=== PATIENT | female | born 1950 | race Caucasian/White ===

== ENCOUNTER 2016-08-28 18:47 | Emergency (ER) | payer OTHER ==
[2016-08-28 20:02] VITALS: BP 153/80
[2016-08-28] MEDS ORDERED: Fluconazole 100 MG TAB* TAB PO ONE (20:51)
[2016-08-28] MEDS ORDERED: Cyclobenzaprine TAB* 10 MG PO ONE (20:52)
[2016-08-28] MEDS ORDERED: traMADol TAB* 50 MG PO ONE (20:53)
--- NOTE | 2016-08-28 21:03 | UC ---
UC General HPI - HPI Summary HPI Summary: 3 problems: low back pain for a week, no injury. She is 4'11" and 225 lb, has frequent episodes of pain. OTC meds not helping. Hard to get comfortable. Also complains of vaginal itching and foul odor when she urinates. Thinks she may have a UTI. Also complains of pain around index fingernail on left side, redness. No drainage. No known injury. - History of Current Complaint Chief Complaint: UCGU Stated Complaint: POSSIBLE UTI, LEFT FINGER SWELLING Time Seen by Provider: 08/28/16 20:42 Hx Obtained From: Patient Onset/Duration: Gradual Onset, Lasting Weeks - 1 Timing: Constant Onset Severity: Mild Current Severity: Mild - Allergy/Home Medications Allergies/Adverse Reactions: Allergies Allergy/AdvReac Type Severity Reaction Status Date / Time Penicillins Allergy Intermediate Hives Verified 08/28/16 20:02 Home Medications: Home Medications Clopidogrel TAB* [Plavix TAB*] 75 mg PO DAILY 08/28/16 [History Confirmed ] PMH/Surg Hx/FS Hx/Imm Hx Endocrine History Of: Reports: Diabetes Cardiovascular History Of: Reports: Hypertension Denies: Cardiac Disorders Respiratory History Of: Reports: Asthma Psychological History Of: Reports: Anxiety, Depression - Surgical History Surgical History: Yes Surgery Procedure, Year, and Place: 1998 APPEDIX AND RT OVARY REMOVED AT [facility] - Family History Known Family History: Positive: Hypertension, Respiratory Disease - Social History Occupation: Retired Lives: With Family Alcohol Use: None Substance Use Type: None Smoking Status (MU): Never Smoked Tobacco Household Exposure Type: Cigarettes - Immunization History Most Recent Influenza Vaccination: "April 2012" Most Recent Tetanus Shot: "up to date" Review of Systems Constitutional: Fatigue Skin: Negative Eyes: Negative ENT: Negative Respiratory: Negative Cardiovascular: Negative Gastrointestinal: Negative Genitourinary: Other - foul odor when urinating. Vaginal itching and "fishy" smell. Motor: Negative Neurovascular: Negative Musculoskeletal: Decreased ROM, Myalgia - lumbar, bilat Neurological: Negative Psychological: Negative All Other Systems Reviewed And Are Negative: Yes Physical Exam Triage Information Reviewed: Yes Appearance: Well-Appearing, No Pain Distress, Well-Nourished, Obese Vital Signs: Initial Vital Signs Temp 97.2 F 08/28/16 19:59 Pulse 105 08/28/16 19:59 Resp 16 02/15/17 19:59 BP 153/80 08/28/16 19:59 Pulse Ox 99 08/28/16 19:59 Vital Signs Reviewed: Yes Eye Exam: Normal Neck exam: Normal Respiratory Exam: Normal Cardiovascular Exam: Normal Musculoskeletal Exam: Other - mild tenderness to palpation over lumbar musculature. Slow to rise up out of chair. Normal gait, but is extremely obese and walking appears to be painful due to excessive weight Neurological Exam: Normal Psychological Exam: Normal Skin Exam: Other - left index finger with redness, tenderness, mild swelling lateral to nail. No pus collection. Good ROM of finger Course/Dx - Differential Dx - Multi-Symptom Provider Diagnoses: 1. lumbar strain 2. vaginitis 3. mild paronychia Discharge - Discharge Plan Condition: Stable Disposition: HOME Prescriptions: Cyclobenzaprine TAB* [Flexeril TAB*] 10 mg PO TID PRN #20 tab PRN Reason: back pain Sulfamethox/Trimethoprim DS* [Bactrim DS 800/160 TAB*] 1 tab PO BID #20 tab Tramadol HCl [Ultram] 1 - 2 mg PO TID PRN #30 tab MDD 6 tab PRN Reason: back pain Patient Education Materials: Cellulitis (ED), Low Back Strain (ED), Vaginitis ( ED) Referrals: Frances Butts MD [Primary Care Provider] -
== END 2016-08-28 21:18 | disposition home or self-care (01) ==
LOC: UCCORT 18:47
DX: S39.012A Strain of muscle, fascia and tendon of lower back, initial encounter (principal); X58.XXXA Exposure to other specified factors, initial encounter; Y93.9 Activity, unspecified; Y92.9 Unspecified place or not applicable; N76.0 Acute vaginitis; L03.012 Cellulitis of left finger; Z88.0 Allergy status to penicillin; Z77.22 Contact with and (suspected) exposure to environmental tobacco smoke (acute) (chronic)
CPT/HCPCS: 87077; 87086; 87186; 99213; A9270-GY; G0463

== ENCOUNTER 2019-07-19 18:41 | Emergency (ER) | payer MEDICARE, OTHER ==
[2019-07-19 19:13] VITALS: BP 97/51
--- NOTE | 2019-07-19 19:40 | UC ---
Skin Complaint HPI - HPI Summary HPI Summary: 68-year-old female presents with a concern for infection or abscess on her vulva /labia for approximately 1 month. Patient states she had similar episode about 3 months ago and went to emergency room and was placed on antibiotics Bactrim and the symptoms resolved. About one month ago the area became more sensitive and over the past week has been most sensitive. There was some drainage a couple days ago which trained. Her last shot was about 2 days ago and noticed some discomfort in the area. She denies any fevers or chills. In the emergency room the area was not lancets at the time according to the patient he says the daughter mentioned that they were concerned about potential infection. Palpating the area worsened symptoms. The antibiotics improved the symptoms previously. - History of Current Complaint Chief Complaint: UCSkin Time Seen by Provider: 07/19/19 19:37 Stated Complaint: SKIN COMPLAINT Hx Obtained From: Patient Hx Last Menstrual Period: N/A Onset/Duration: Gradual Onset Pain Intensity: 8 Aggravating Factor(s): Touch Alleviating Factor(s): Nothing - Allergy/Home Medications Allergies/Adverse Reactions: Allergies Allergy/AdvReac Type Severity Reaction Status Date / Time Penicillins Allergy Intermediate Hives Verified 07/19/19 19:13 Home Medications: Home Medications Apixaban* [Eliquis*] 2.5 mg PO BID 07/19/19 [History Confirmed 07/19/19] Glimepiride 2 mg PO DAILY 07/19/19 [History Confirmed 07/19/19] Pantoprazole TAB * [Protonix TAB*] 40 mg PO DAILY 07/19/19 [History Confirmed ] PMH/Surg Hx/FS Hx/Imm Hx Previously Healthy: Yes Endocrine History: Diabetes, Dyslipidemia Cardiovascular History: Cardiac Disease, Hypertension, Atrial Fibrillation GI/ History: Gastroesophageal Reflux Psychological History: Depression - Surgical History Surgical History: Yes Surgery Procedure, Year, and Place: 1998 APPEDIX AND RT OVARY REMOVED AT [facility]. right ankle fx 2018 - Family History Known Family History: Positive: Hypertension, Respiratory Disease - Social History Alcohol Use: Occasionally Substance Use Type: None Smoking Status (MU): Never Smoked Tobacco Household Exposure Type: Cigarettes - Immunization History Most Recent Influenza Vaccination: "April 2012" Most Recent Tetanus Shot: "up to date" Review of Systems All Other Systems Reviewed And Are Negative: Yes Skin: Positive: Other - Possible abscess and pain in the genital area Physical Exam Triage Information Reviewed: Yes Appearance: Well-Appearing, No Pain Distress, Well-Nourished Vital Signs: Initial Vital Signs Temp 97.7 F 07/19/19 19:08 Pulse 84 07/19/19 19:08 Resp 17 07/19/19 19:08 BP 97/51 07/19/19 19:08 Pulse Ox 98 07/19/19 19:08 Vital Signs Reviewed: Yes ENT Exam: Normal Dental Exam: Normal Neck: Positive: 1 Respiratory Exam: Normal Cardiovascular Exam: Normal Abdominal Exam: Normal Neurological Exam: Normal Psychological Exam: Normal Skin Exam: Normal Skin: Positive: Other - see photo Images Perineum Female: 1 - 2 x 2 cm area of redness, tenderness to palpation with dry discharge in the center with some induration Course/Dx - Course Course Of Treatment: Patient with abscess present at this time. There is some dried drainage in the center so potential that it has started to drain on its own already. We discussed incision and drainage but with the patient's risk factors of diabetes but more poorly being on a blood thinner if an incision was made and because of bleeding occurred we are not a good facility to handle such. Since previously D Bactrim caused the symptoms to resolve we will start with that at this time. Monitor blood sugars closely. If pain worsens go to emergency room for potential incision and drainage. Follow up with primary care doctor in 2-3 days. Patient is aware and agreeable to plan as well as to side effects of antibiotics. - Differential Diagnoses - Skin Complaint Differential Diagnoses: Abscess - Diagnoses Provider Diagnosis: Labial abscess Discharge ED - Sign-Out/Discharge Documenting (check all that apply): Patient Departure All imaging exams completed and their final reports reviewed: No Studies - Discharge Plan Condition: Good Disposition: HOME Prescriptions: Sulfamethox/Trimethoprim DS* [Bactrim DS 800/160 TAB*] 1 tab PO BID #20 tab Patient Education Materials: Abscess (ED) Referrals: No Primary Care Phys,NOPCP [Primary Care Provider] - 3 Days Additional Instructions: As we discussed you are placed on antibiotics and should perform warm soaks to the area in a bathtub once per day. If symptoms worsen or pain worsens please go to emergency room for further evaluation. - Billing Disposition and Condition Condition: GOOD Disposition: Home
[2019-07-19] MEDS ORDERED: traMADol TAB* 50 MG PO ONE (20:12)
== END 2019-07-19 19:54 | disposition home or self-care (01) ==
LOC: UCCORT 18:41
DX: N76.4 Abscess of vulva (principal); E11.9 Type 2 diabetes mellitus without complications; I10 Essential (primary) hypertension; I48.91 Unspecified atrial fibrillation; K21.9 Gastro-esophageal reflux disease without esophagitis; Z79.84 Long term (current) use of oral hypoglycemic drugs; Z79.899 Other long term (current) drug therapy; Z88.0 Allergy status to penicillin; Z79.01 Long term (current) use of anticoagulants
CPT/HCPCS: 99212; A9270-GY; G0463

== ENCOUNTER 2023-07-16 21:26 | Inpatient (IN) ==
[2023-07-16] MEDS ORDERED: Ondansetron 4 mg VIAL 2 MG/ML 2 ml VIAL IV ONE (21:50)
[2023-07-16 22:29] LABS: ABS Lymphocytes 1.6 10^3/uL (1.0-4.8); ABS Monocytes 0.8 10^3/uL (0.0-0.9); Eosinophil % 0.5 %; Hematocrit 35.6 % (35-45); Hemoglobin 11.6 g/dL (11.5-14.3); Mean Corpuscular Hemoglobin 31.1 pg (27-33); Mean Corpuscular Hgb Conc 32.6 g/dL (31-36); Mean Corpuscular Volume 95.2 fL (80-97); Mean Platelet Volume 9.3 fL (7.5-11.2); Platelet Count 215 10^3/uL (150-450); Red Blood Count 3.74 10^6/uL (3.63-4.92); Red Cell Distribution Width 18.3 % (12-17); White Blood Count 9.5 10^3/uL (3.8-11.8)
[2023-07-16 23:09] LABS: Albumin 3.6 g/dL (3.2-5.2); Albumin/Globulin Ratio 0.9 (1-3); C Reactive Protein 75.23 mg/L (<8.01); Creatinine, Serum 8.14 mg/dL (0.51-0.95); Globulin 3.8 g/dL (2-4); Magnesium 1.1 mg/dL (1.9-2.7); Potassium 6.3 mmol/L (3.5-5.0); Total Bilirubin 0.5 mg/dL (0.2-1.0); Total Protein 7.4 g/dL (6.4-8.9); eGFR CKD-EPI 4.9 (>60)
[2023-07-16] MEDS ORDERED: Furosemide 40 mg/4 ml IV VIAL IV ONE (23:54)
[2023-07-16] MEDS ORDERED: Magnesium Sulfate 2 gm BAG 2 GM/50 ML BAG IVPB ONE (23:54)
[2023-07-16] MEDS ORDERED: Albuterol 2.5mg/3 ml (0.083%) NEB.SOLN INH ONE (23:54)
[2023-07-16] MEDS ORDERED: Calcium Gluconate 2 GM in NS 0.9% 100 ml BAG 100 ML IVPB ONE (23:54)
[2023-07-16] MEDS ORDERED: Lactated Ringers 1000 ml BAG 1,000 ML IV ONE (23:54)
[2023-07-17] MEDS ORDERED: Sodium Polystyrene ORAL.SUSP 15 GM/60 ML BTL PO ONE ×2 (00:11→00:29)
[2023-07-17] MEDS ORDERED: NS 0.9% 1000 ml BAG 1,000 ML IV SCH (00:30)
[2023-07-17] MEDS ORDERED: Sodium Bicarbonate 8.4% SYR 50 ml SYRINGE IV ONE (00:35)
[2023-07-17] MEDS ORDERED: Magnesium Sulfate 2 gm BAG 2 GM/50 ML BAG IVPB ONE (00:35)
[2023-07-17] MEDS ORDERED: Sodium Bicarbonate 8.4% SYR 50 ml SYRINGE ONE (01:41)
[2023-07-17 05:04] LABS: Venous Bicarbonate HCO3 13.9 mmol/L (24-28)
[2023-07-17 05:41] LABS: Calcium 9.1 mg/dL (8.6-10.3); Creatinine, Serum 8.16 mg/dL (0.51-0.95); Potassium 5.4 mmol/L (3.5-5.0); eGFR CKD-EPI 4.9 (>60)
[2023-07-17] MEDS ORDERED: Sodium Bicarb 8.4% Vial 50 ML 150 MEQ in D5W 1000 ml BAG 850 ML IV SCH (09:30)
[2023-07-17 11:38] LABS: Urine Appearance Cloudy; Urine Bacteria 1+ (Absent); Urine Bilirubin Negative (Negative); Urine Blood 2+ (Negative); Urine Color Yellow; Urine Glucose Negative (Negative); Urine Ketones Negative (Negative); Urine Nitrite Negative (Negative); Urine Protein 1+(30 mg/dL) (Negative); Urine Red Blood Cell 3+(>10/hpf) (Absent); Urine Specific Gravity 1.009 (1.002-1.030); Urine Squamous Epithelial Cell Present (Absent); Urine Urobilinogen Negative (Negative); Urine White Blood Cell 3+(>20/hpf) (Absent)
[2023-07-17 11:41] LABS: Creatinine, Serum 7.99 mg/dL (0.51-0.95); Potassium 5.4 mmol/L (3.5-5.0)
[2023-07-17] MEDS: Sodium Bicarb 8.4% Vial 50 ML 150 MEQ in D5W 1000 ml BAG 850 ML IV SCH ×2 (14:30→22:21)
[2023-07-17 15:14] LABS: C Reactive Protein 70.33 mg/L (<8.01)
[2023-07-17 15:41] LABS: Rheumatoid Factor < 10 IU/mL (<15)
[2023-07-17 15:42] LABS: Anion Gap 28 mmol/L (2-16); Blood Urea Nitrogen 95 mg/dL (6-24); CO2 Carbon Dioxide 11 mmol/L (22-32); Chloride 100 mmol/L (101-111); Creatinine, Serum 8.06 mg/dL (0.51-0.95); Glucose 214 mg/dL (70-100); Potassium 5.1 mmol/L (3.5-5.0); Sodium 139 mmol/L (135-145); eGFR CKD-EPI 4.9 (>60)
[2023-07-17 15:58] LABS: Hepatitis B Surface Antigen Nonreactive (Nonreactive)
[2023-07-17 16:09] LABS: HIV 4th Generation Nonreactive (Nonreactive)
[2023-07-17 21:17] LABS: Calcium 8.4 mg/dL (8.6-10.3); Creatinine, Serum 7.85 mg/dL (0.51-0.95); Potassium 4.3 mmol/L (3.5-5.0); eGFR CKD-EPI 5.1 (>60)
[2023-07-18 01:28] LABS: Creatinine, Serum 7.49 mg/dL (0.51-0.95); Potassium 3.5 mmol/L (3.5-5.0); eGFR CKD-EPI 5.4 (>60)
[2023-07-18] MEDS ORDERED: Potassium EFFERVES 25 meq TAB PO ONE (01:47)
[2023-07-18 05:27] LABS: ABS Eosinophils 0.1 10^3/uL (0.0-0.5); ABS Lymphocytes 0.4 10^3/uL (1.0-4.8); ABS Monocytes 0.3 10^3/uL (0.0-0.9); ABS Neutrophils 5.9 10^3/uL (1.5-7.6); Eosinophil % 1.2 %; Hematocrit 29.3 % (35-45); Lymphocyte % 5.8 %; Mean Corpuscular Hgb Conc 34.1 g/dL (31-36); Mean Platelet Volume 8.7 fL (7.5-11.2); Platelet Count 177 10^3/uL (150-450); Red Blood Count 3.22 10^6/uL (3.63-4.92); Red Cell Distribution Width 17.8 % (12-17); White Blood Count 6.6 10^3/uL (3.8-11.8)
[2023-07-18 05:44] LABS: Calcium 8.3 mg/dL (8.6-10.3); Creatinine, Serum 7.47 mg/dL (0.51-0.95); Potassium 3.8 mmol/L (3.5-5.0); eGFR CKD-EPI 5.4 (>60)
[2023-07-18] MEDS: Cholecalciferol (VIT D3) 1,000 unit TAB PO SCH (07:51)
[2023-07-18 07:52] LABS: Phosphorus 4.2 mg/dL (2.5-5.0)
[2023-07-18] MEDS: Venlafaxine XR 75 mg PO SCH (07:52)
[2023-07-18] MEDS: NS 0.9% 1000 ml BAG 1,000 ML IV SCH ×2 (08:56→21:17)
[2023-07-18 10:16] LABS: Magnesium 1.5 mg/dL (1.9-2.7)
[2023-07-18] MEDS: Nystatin TOP POWDER 15 GM BTL TOPICAL SCH ×2 (12:23→21:19)
[2023-07-18 14:29] LABS: Kappa Free Light Chain 10.9 mg/dL; Lambda Free Light Chain, S 10.7 mg/dL
[2023-07-18 14:30] LABS: Calcium 7.7 mg/dL (8.6-10.3); Creatinine, Serum 7.08 mg/dL (0.51-0.95); Potassium 3.5 mmol/L (3.5-5.0); eGFR CKD-EPI 5.8 (>60)
[2023-07-18] MEDS ORDERED: NS 0.9% 500 ml BAG 500 ML IV ONE (14:50)
[2023-07-18] MEDS ORDERED: Magnesium Sulfate 2 gm BAG 2 GM/50 ML BAG IVPB ONE ×2 (14:54→15:54)
[2023-07-18 16:05] LABS: Complement C3 142 mg/dL (75 - 175)
[2023-07-18] MEDS ORDERED: Magnesium Sulfate IV 1GM/100ML 1 GM/100 ML BAG IV ONE (16:15)
[2023-07-18 16:59] LABS: Hepatitis B Surface Ab Not Immune (Immune)
[2023-07-18 17:00] LABS: Hepatitis C Antibody Negative (Negative)
[2023-07-18] MEDS: Sodium Bicarb 8.4% Vial 50 ML 150 MEQ in D5W 1000 ml BAG 850 ML IV SCH ×2 (21:48→21:49)
[2023-07-19 00:12] LABS: Albumin 2.7 g/dL (3.4-4.7); Flag, M-protein Isotype Negative (Negative); Total Protein 6.5 g/dL (6.3 - 7.9)
[2023-07-19] MEDS ORDERED: Calcium Carb (TUMS) 500 mg CHEW TAB PO ONE (00:48)
[2023-07-19 02:57] LABS: Calcium 7.6 mg/dL (8.6-10.3); Creatinine, Serum 6.3 mg/dL (0.51-0.95); Magnesium 2.2 mg/dL (1.9-2.7); Potassium 3.1 mmol/L (3.5-5.0); eGFR CKD-EPI 6.6 (>60)
[2023-07-19 05:30] LABS: ABS Eosinophils 0.1 10^3/uL (0.0-0.5); ABS Lymphocytes 0.7 10^3/uL (1.0-4.8); ABS Monocytes 0.5 10^3/uL (0.0-0.9); ABS Neutrophils 3.9 10^3/uL (1.5-7.6); Eosinophil % 2.6 %; Hemoglobin 8.8 g/dL (11.5-14.3); Lymphocyte % 13.6 %; Mean Corpuscular Hemoglobin 31.4 pg (27-33); Mean Corpuscular Volume 92.3 fL (80-97); Mean Platelet Volume 8.8 fL (7.5-11.2); Platelet Count 151 10^3/uL (150-450); Red Blood Count 2.81 10^6/uL (3.63-4.92); Red Cell Distribution Width 17.5 % (12-17); White Blood Count 5.3 10^3/uL (3.8-11.8)
[2023-07-19] MEDS ORDERED: Potassium EFFERVES 25 meq TAB PO ONE (05:54)
[2023-07-19] MEDS: NS 0.9% 1000 ml BAG 1,000 ML IV SCH ×2 (07:12→22:00)
[2023-07-19] MEDS: Venlafaxine XR 75 mg PO SCH (07:56)
[2023-07-19] MEDS: Nystatin TOP POWDER 15 GM BTL TOPICAL SCH ×3 (07:56→20:24)
[2023-07-19] MEDS: Cholecalciferol (VIT D3) 1,000 unit TAB PO SCH (07:56)
[2023-07-19] MEDS ORDERED: Potassium Chlor 20 meq TAB.ER PO ONE (08:11)
[2023-07-19 12:04] LABS: Calcium 7.9 mg/dL (8.6-10.3); Creatinine, Serum 6.19 mg/dL (0.51-0.95); Potassium 3.9 mmol/L (3.5-5.0); eGFR CKD-EPI 6.8 (>60)
[2023-07-19] MEDS ORDERED: Dextrose 50% Syringe 50 ml 25 GM/50 ML SYRINGE IV PUSH PRN (16:17)
[2023-07-20 04:13] LABS: ABS Eosinophils 0.2 10^3/uL (0.0-0.5); ABS Lymphocytes 0.9 10^3/uL (1.0-4.8); ABS Monocytes 0.5 10^3/uL (0.0-0.9); ABS Neutrophils 3.4 10^3/uL (1.5-7.6); Eosinophil % 3.3 %; Hematocrit 24.9 % (35-45); Hemoglobin 8.4 g/dL (11.5-14.3); Lymphocyte % 18.1 %; Mean Corpuscular Hemoglobin 31.7 pg (27-33); Mean Corpuscular Hgb Conc 33.9 g/dL (31-36); Mean Corpuscular Volume 93.7 fL (80-97); Mean Platelet Volume 8.7 fL (7.5-11.2); Platelet Count 157 10^3/uL (150-450); Red Blood Count 2.66 10^6/uL (3.63-4.92); Red Cell Distribution Width 17.8 % (12-17); White Blood Count 4.9 10^3/uL (3.8-11.8)
[2023-07-20 04:32] LABS: Creatinine, Serum 5.84 mg/dL (0.51-0.95); Potassium 3.4 mmol/L (3.5-5.0); eGFR CKD-EPI 7.2 (>60)
[2023-07-20] MEDS: NS 0.9% 1000 ml BAG 1,000 ML IV SCH ×2 (07:32→17:56)
[2023-07-20] MEDS: Venlafaxine XR 75 mg PO SCH (08:42)
[2023-07-20] MEDS: Cholecalciferol (VIT D3) 1,000 unit TAB PO SCH (08:43)
[2023-07-20] MEDS: Nystatin TOP POWDER 15 GM BTL TOPICAL SCH ×2 (10:28→14:15)
[2023-07-20] MEDS: Senna TAB 8.6 mg TAB PO PRN (20:29)
[2023-07-20] MEDS: Polyethylene Glycol 3350 17 GM PACKET PO PRN (20:30)
[2023-07-21] MEDS: Nystatin TOP POWDER 15 GM BTL TOPICAL SCH ×5 (01:07→20:06)
[2023-07-21] MEDS: NS 0.9% 1000 ml BAG 1,000 ML IV SCH (03:59)
[2023-07-21] MEDS: Cholecalciferol (VIT D3) 1,000 unit TAB PO SCH (07:52)
[2023-07-21] MEDS: Venlafaxine XR 75 mg PO SCH (07:53)
[2023-07-21 08:34] LABS: Hematocrit 29.5 % (35-45); Hemoglobin 9.9 g/dL (11.5-14.3); Mean Corpuscular Hemoglobin 31.4 pg (27-33); Mean Corpuscular Hgb Conc 33.4 g/dL (31-36); Mean Corpuscular Volume 94.1 fL (80-97); Mean Platelet Volume 8.9 fL (7.5-11.2); Platelet Count 197 10^3/uL (150-450); Red Blood Count 3.14 10^6/uL (3.63-4.92); Red Cell Distribution Width 17.9 % (12-17); White Blood Count 6.4 10^3/uL (3.8-11.8)
[2023-07-21 08:50] LABS: Calcium 8.3 mg/dL (8.6-10.3); Creatinine, Serum 5.27 mg/dL (0.51-0.95); Magnesium 1.5 mg/dL (1.9-2.7); Phosphorus 2.2 mg/dL (2.5-5.0); Potassium 3.7 mmol/L (3.5-5.0); eGFR CKD-EPI 8.2 (>60)
[2023-07-21] MEDS ORDERED: Magnesium Sulfate 2 gm BAG 2 GM/50 ML BAG IVPB ONE (11:05)
[2023-07-21] MEDS: Potassium & Sodium Phos 250 mg = 1 PACKET PO SCH ×3 (11:57→20:04)
[2023-07-21 16:07] LABS: PLA2R, Immunofluorescence, S Negative (Negative)
[2023-07-21] MEDS: Senna TAB 8.6 mg TAB PO PRN (16:48)
[2023-07-21] MEDS: Polyethylene Glycol 3350 17 GM PACKET PO PRN (16:48)
[2023-07-21 21:22] LABS: Urine Appearance Clear; Urine Bilirubin Negative (Negative); Urine Blood 2+ (Negative); Urine Color Straw; Urine Glucose 3+(>=500 mg/dL) (Negative); Urine Ketones Negative (Negative); Urine Nitrite Negative (Negative); Urine Protein Negative (Negative); Urine Specific Gravity 1.002 (1.002-1.030); Urine Urobilinogen Negative (Negative)
[2023-07-21 21:40] LABS: Urine Bacteria 1+ (Absent); Urine Red Blood Cell 1+(3-5/hpf) (Absent); Urine Squamous Epithelial Cell Present (Absent); Urine White Blood Cell Trace(0-5/hpf) (Absent)
[2023-07-22] MEDS ORDERED: Magnesium Sulfate 2 gm BAG 2 GM/50 ML BAG IVPB ONE (07:22)
[2023-07-22] MEDS: Potassium & Sodium Phos 250 mg = 1 PACKET PO SCH ×3 (08:16→20:44)
[2023-07-22] MEDS: Venlafaxine XR 75 mg PO SCH (08:17)
[2023-07-22] MEDS: Cholecalciferol (VIT D3) 1,000 unit TAB PO SCH (08:17)
[2023-07-22] MEDS: Nystatin TOP POWDER 15 GM BTL TOPICAL SCH ×3 (08:18→20:53)
[2023-07-22] MEDS ORDERED: Magnesium Sulfate IV 1GM/100ML 1 GM/100 ML BAG IV ONE (09:22)
[2023-07-22 09:32] LABS: C-ANCA Negative (Negative); P-ANCA Negative (Negative)
[2023-07-22 12:12] LABS: ABS Eosinophils 0.2 10^3/uL (0.0-0.5); ABS Lymphocytes 0.6 10^3/uL (1.0-4.8); ABS Monocytes 0.6 10^3/uL (0.0-0.9); ABS Neutrophils 4.6 10^3/uL (1.5-7.6); Eosinophil % 3.3 %; Hemoglobin 9.7 g/dL (11.5-14.3); Lymphocyte % 9.8 %; Mean Corpuscular Hemoglobin 31.5 pg (27-33); Mean Corpuscular Hgb Conc 33.5 g/dL (31-36); Mean Corpuscular Volume 93.9 fL (80-97); Mean Platelet Volume 8.2 fL (7.5-11.2); Platelet Count 207 10^3/uL (150-450); Red Blood Count 3.08 10^6/uL (3.63-4.92); Red Cell Distribution Width 17.6 % (12-17)
[2023-07-22 12:33] LABS: Calcium 8.8 mg/dL (8.6-10.3); Creatinine, Serum 4.69 mg/dL (0.51-0.95); Magnesium 2.7 mg/dL (1.9-2.7); Potassium 4.5 mmol/L (3.5-5.0); eGFR CKD-EPI 9.4 (>60)
[2023-07-23 07:17] LABS: ABS Eosinophils 0.2 10^3/uL (0.0-0.5); ABS Lymphocytes 0.9 10^3/uL (1.0-4.8); ABS Monocytes 0.6 10^3/uL (0.0-0.9); ABS Neutrophils 4.2 10^3/uL (1.5-7.6); Eosinophil % 3.1 %; Hematocrit 27.3 % (35-45); Hemoglobin 9.1 g/dL (11.5-14.3); Lymphocyte % 14.9 %; Mean Corpuscular Hemoglobin 31.3 pg (27-33); Mean Corpuscular Hgb Conc 33.3 g/dL (31-36); Mean Corpuscular Volume 93.9 fL (80-97); Mean Platelet Volume 8.2 fL (7.5-11.2); Nucleated Red Blood Cells % 0.1 %/100WBC (0.0-0.8); Platelet Count 212 10^3/uL (150-450); White Blood Count 5.9 10^3/uL (3.8-11.8)
[2023-07-23 07:32] LABS: Calcium 8.5 mg/dL (8.6-10.3); Creatinine, Serum 5.08 mg/dL (0.51-0.95); Phosphorus 3.2 mg/dL (2.5-5.0); Potassium 4.6 mmol/L (3.5-5.0); eGFR CKD-EPI 8.6 (>60)
[2023-07-23] MEDS: Potassium & Sodium Phos 250 mg = 1 PACKET PO SCH ×2 (09:37→12:31)
[2023-07-23] MEDS: Cholecalciferol (VIT D3) 1,000 unit TAB PO SCH (09:39)
[2023-07-23] MEDS: Venlafaxine XR 75 mg PO SCH (09:39)
[2023-07-23] MEDS: Nystatin TOP POWDER 15 GM BTL TOPICAL SCH ×3 (09:40→20:37)
[2023-07-23 17:53] LABS: Ferritin 49.3 ng/mL (11-307)
[2023-07-24] MEDS ORDERED: Lidocaine PATCH 4% TOPICAL ONE (02:24)
[2023-07-24 06:19] LABS: ABS Eosinophils 0.2 10^3/uL (0.0-0.5); ABS Lymphocytes 0.9 10^3/uL (1.0-4.8); ABS Monocytes 0.7 10^3/uL (0.0-0.9); ABS Neutrophils 3.6 10^3/uL (1.5-7.6); ABS Nucleated RBC 0.01 10^3/ul; Eosinophil % 3.3 %; Hematocrit 24.8 % (35-45); Hemoglobin 8.3 g/dL (11.5-14.3); Lymphocyte % 15.9 %; Mean Corpuscular Hemoglobin 31.4 pg (27-33); Mean Corpuscular Hgb Conc 33.5 g/dL (31-36); Mean Corpuscular Volume 93.7 fL (80-97); Mean Platelet Volume 8.5 fL (7.5-11.2); Nucleated Red Blood Cells % 0.1 %/100WBC (0.0-0.8); Platelet Count 207 10^3/uL (150-450); Red Blood Count 2.64 10^6/uL (3.63-4.92); Red Cell Distribution Width 17.6 % (12-17); White Blood Count 5.4 10^3/uL (3.8-11.8)
[2023-07-24 06:27] LABS: Calcium 8.4 mg/dL (8.6-10.3); Creatinine, Serum 4.93 mg/dL (0.51-0.95); Potassium 4.5 mmol/L (3.5-5.0); eGFR CKD-EPI 8.9 (>60)
[2023-07-24 08:00] LABS: Albumin 2.8 g/dL (3.2-5.2); Globulin 2.8 g/dL (2-4); Total Bilirubin 0.5 mg/dL (0.2-1.0); Total Protein 5.6 g/dL (6.4-8.9)
[2023-07-24] MEDS: Cholecalciferol (VIT D3) 1,000 unit TAB PO SCH (08:16)
[2023-07-24] MEDS: Venlafaxine XR 75 mg PO SCH (08:16)
[2023-07-24] MEDS: Nystatin TOP POWDER 15 GM BTL TOPICAL SCH (08:17)
[2023-07-24 08:53] LABS: Rapid COVID-19 Molecular Undetected (Undetected)
[2023-07-24 10:26] VITALS: BP 100/47
== END 2023-07-24 13:05 | DRG 392 ==
LOC: ED 21:26 → EDHOLD 07-17 08:48 → SUATTDRO 07-17 08:48 → ICU 07-17 11:59 → MED 07-20 15:18
PROVIDERS: ADMIT Student in an Organized Health Care Education/Training Program; ATTEND Internal Medicine

== ENCOUNTER 2024-01-01 17:06 | Observation (INO) ==
[2024-01-01] MEDS: Iodixanol (CONTRAST) 320 MG/ML 100 ML SDV IV ONE (17:28)
[2024-01-01] MEDS: Aspirin EC 325 mg TAB.EC PO ONE (18:02)
[2024-01-01 18:06] LABS: Activated Partial Thrombo Time 25.1 seconds (26.0-38.0); INR 1.2 (0.83-1.13)
[2024-01-01 18:34] LABS: ALT 27 U/L (7-52); Albumin 3.4 g/dL (3.2-5.2); Albumin/Globulin Ratio 1.2 (1-3); Alkaline Phosphatase 105 U/L (35-149); Anion Gap 11 mmol/L (2-16); Blood Urea Nitrogen 79 mg/dL (6-24); CO2 Carbon Dioxide 16 mmol/L (22-32); Calcium 8.6 mg/dL (8.6-10.3); Chloride 110 mmol/L (101-111); Cholesterol 183 mg/dL; Creatinine, Serum 4.79 mg/dL (0.51-0.95); Globulin 2.9 g/dL (2-4); Glucose 140 mg/dL (70-100); HDL Cholesterol 56.3 mg/dL; LDL Cholesterol 106 mg/dL; Sodium 137 mmol/L (135-145); Total Bilirubin 0.5 mg/dL (0.2-1.0); Total Protein 6.3 g/dL (6.4-8.9); Triglycerides 105 mg/dL; eGFR CKD-EPI 9.1 (>60)
[2024-01-01 20:06] LABS: ABS Eosinophils 0.2 10^3/uL (0.0-0.5); ABS Lymphocytes 1.4 10^3/uL (1.0-4.8); ABS Monocytes 0.9 10^3/uL (0.0-0.9); ABS Neutrophils 4.5 10^3/uL (1.5-7.6); Acanthocytes 1+; Anisocytosis 1+; Eosinophil % 2.3 %; Hematocrit 34.8 % (35-45); Hemoglobin 10.8 g/dL (11.5-14.3); Lymphocyte % 20.3 %; Macrocytosis 1+; Mean Corpuscular Hemoglobin 28.3 pg (27-33); Mean Corpuscular Hgb Conc 31.1 g/dL (31-36); Mean Corpuscular Volume 91.1 fL (80-97); Mean Platelet Volume 8.7 fL (7.5-11.2); Microcytosis 1+; Platelet Count 217 10^3/uL (150-450); Red Blood Count 3.82 10^6/uL (3.63-4.92); Red Cell Distribution Width 25.2 % (12-17)
[2024-01-01 22:52] LABS: Urine Appearance Clear; Urine Bilirubin Negative (Negative); Urine Blood Negative (Negative); Urine Color Colorless; Urine Glucose 1+ (>=70 mg/dL) (Negative); Urine Ketones Negative (Negative); Urine Nitrite Negative (Negative); Urine Protein Trace (Negative); Urine Specific Gravity 1.014 (1.002-1.030); Urine Urobilinogen Negative (Negative); Urine pH 5.5 (5.0-8.0)
[2024-01-01] MEDS ORDERED: Dextrose 50% Syringe 50 ml 25 GM/50 ML SYRINGE IV PUSH PRN (23:44)
[2024-01-02] MEDS ORDERED: Lidocaine PATCH 4% TOPICAL PRN (00:07)
[2024-01-02] MEDS: Lactated Ringers 1000 ml BAG 1,000 ML IV ONE ×2 (04:02→11:54)
[2024-01-02] MEDS ORDERED: Labetalol IV 5 MG/ML 20 ml VIAL IV PUSH PRN (05:20)
[2024-01-02 05:52] LABS: Potassium Redraw 4.5 mmol/L (3.5-5.0)
[2024-01-02] MEDS: Mometasone/Formoter 200/5 MDI INH SCH (07:00)
[2024-01-02 08:41] LABS: Calcium 8.1 mg/dL (8.6-10.3); Potassium 4.6 mmol/L (3.5-5.0)
[2024-01-02] MEDS: Enoxaparin 30 MG/0.3 ML SYR SUBCUT SCH (09:02)
[2024-01-02] MEDS: Venlafaxine XR 75 mg PO SCH (09:03)
[2024-01-02] MEDS: Aspirin EC 81 mg TAB.EC (enteric coated) PO SCH (09:03)
[2024-01-02 09:19] LABS: Creatinine, Serum 4.48 mg/dL (0.51-0.95); eGFR CKD-EPI 9.9 (>60)
[2024-01-02] MEDS: Sulfur Hexaflouride MICROSPHR 25 MG VIAL IV ONE (13:24)
[2024-01-02] MEDS: Insulin GLARGINE 100 un/ml 10 ml VIAL SUBCUT SCH (20:54)
[2024-01-02] MEDS: Nystatin TOP POWDER 15 GM BTL TOPICAL SCH (21:57)
[2024-01-05 13:42] VITALS: BP 138/60
== END 2024-01-05 14:41 ==
LOC: ED 17:06 → SUATTDRO 22:23 → EDHOLD 22:23 → INTOOBSV 22:23 → MEDTELE 01-02 19:43
PROVIDERS: ADMIT Internal Medicine; ATTEND Internal Medicine